=== PATIENT | female | born 1985 | race Caucasian/White ===

== ENCOUNTER → 2024-10-19 07:09 | Outpatient (CLI) | payer OTHER, SELFPAY ==
[2024-10-19 08:33] LABS: HCG Quantitative /Beta subunit < 2.39 mIU/mL
[2024-10-19 08:34] LABS: Follicle Stimulating Hormone 34.6 mIU/mL
[2024-10-19 08:35] LABS: Progesterone, Total 1.42 ng/mL
[2024-10-19 08:49] LABS: Estradiol, Total 32.0 pg/mL
== END ==
DX: Z31.83 Encounter for assisted reproductive fertility procedure cycle (principal)
CPT/HCPCS: 36415; 82670; 83001; 83002; 84144; 84702